=== PATIENT | female | born 1975 | race Caucasian/White ===

== ENCOUNTER → 2016-11-27 | Outpatient (CLI) | payer BC ==
[~2016-11-27] MED LIST: AURALGAN OTIC S10 M1 AD; CIPRO PO; FLOXIN10 ML OT; NAPROXEN PO; PROPRANOLOL PO; PYRIDIUM PO; PYRIDIUM100 MG PO; RELPAX20 MG PO; SENOKOT S1 TA1 PO; ULTRAM PO; VITAMIN B12; ZOFRAN ODT4 MG PO; ZYRTEC10 M1 PO; [UNRECOGNIZED DRUG - OTHER]
--- NOTE | ~2016-11-27 | MR17 ---
[facility] A Service of [facility] & [facility] RADIOLOGY TEXT RESULTS PATIENT: KAT VALERA LOCATION: [facility] : 71 UNIT #: [id number] AGE: [address]: Ashish Easton II, MD SEX: F ORDER DR: [id number] [id number] O MR#: [id number] Acc #: [id number] NAME: KAT VALERA : 1975 SEX: F STUDY DATE/TIME: 11/27/2016 14:23 UNIT: [facility] ROOM: STUDY DESCRIPTION: MR Brain WWo Contrast Attending Physician: Ashish Easton II., M.D. Referring Physician: Ashish Easton II., M.D. Ordering Physician: Ashish Easton II., M.D. Primary Care Physician: Julio Cesar Ramos M.D. MRI CENTER REPORT This report is preliminary unless electronic signature is present. EXAM MRI of the brain with and without HISTORY Myalgia, no known injury, patient complains of increasing fatigue with bilateral leg weakness, increased sleeping at night, 12-15 hours a day for 8-9 months and severe pain. COMMENT MRI of the brain was performed prior to and following intravenous administration [address] for comparison is from 2010. There is no evidence for a recent ischemic insult on the diffusion series. No Chiari I malformation. No extraaxial fluid collection. The major intracranial flow voids are maintained. The mastoid air cells are clear. There is a mucous retention cyst or polyp in the left maxillary sinus. There is no MRI evidence for intracranial hemorrhage. There is minimal white matter signal abnormality within the range of expected for age group. There is no intracranial mass effect. Following contrast administration, there is no pathologic intracranial enhancement. IMPRESSION 1. Essentially normal MRI of the brain with and without contrast for age group. Dictated by... Ale Stephen M.D. THIS IS AN ELECTRONICALLY VERIFIED REPORT Ale Stephen M.D. at 11/29/2016 8:02 PM [facility]/psc [facility]. [facility] A Service of [facility] & [facility] RADIOLOGY TEXT RESULTS PATIENT: KAT VALERA LOCATION: [facility] #: [id number] : [birth year] UNIT #: [id number] AGE: [address]: Ashish Easton II, MD SEX: F ORDER DR: TD: 11/28/2016 23:11 JOB #: [id number] MRI CENTER REPORT Page 1 of 1
== END | disposition home or self-care (01) ==
LOC: SMRI 13:10
DX: M79.1 Myalgia (principal)
CPT/HCPCS: 70553; A9581